=== PATIENT | female | born 1990 | race Caucasian/White ===

== ENCOUNTER 2018-12-20 19:20 | Emergency (ER) | payer OTHER ==
[~2018-12-20] VITALS: Ht 149.9 cm; Wt 49.9 kg
[2018-12-20 19:27] VITALS: BP 119/72
--- NOTE | 2018-12-20 19:27 | NUR ---
TO BED # 04 VIA WHEEL CHAIR
--- NOTE | 2018-12-20 19:36 | NUR ---
28/F PRESENTS TO ED, C/O L FOOT PAIN, S/P FOOT INVERSION WHILE RUNNING X2 HRS AGO. DENIES HEAD TRAUMA/LOC. LEFT SIDE OF DORSAL ASPECT OF L FOOT WITH BRUSING AND SWELLING, TENDER TO TOUCH, DECREASED ROM AND UNABLE TO BEAR WEIGHT DUE TO PAIN, CAP REFILL<3S. DENIES HX OTC MOTRIN 2 HRS AGO
--- NOTE | 2018-12-20 19:40 | NUR ---
XR AT BEDSIDE
[2018-12-20] MEDS ORDERED: HYDROcodone/APAP 5/325 MG 1 TAB TAB PO ONE (20:10)
[2018-12-20 21:00] VITALS: BP 136/86
--- NOTE | 2018-12-20 21:00 | NUR ---
Patient discharged with v/s stable. Written and verbal after care instructions given and explained. Patient alert, oriented and verbalized understanding of instructions. Ambulatory with crutches. All questions addressed prior to discharge. ID band removed. Patient advised to follow up with PMD. Rx of ibuprofen and norco given. Patient educated on indication of medication including possible reaction and side effects. Opportunity to ask questions provided and answered.
== END 2018-12-20 21:00 | disposition home or self-care (01) ==
LOC: MED 19:20
DX: M79.672 Pain in left foot (principal)
CPT/HCPCS: 73630; 99283; Q0092

== ENCOUNTER 2018-12-24 14:41 | Emergency (ER) | payer OTHER ==
[~2018-12-24] VITALS: Ht 147.3 cm; Wt 49.9 kg
[2018-12-24 14:48] VITALS: BP 111/75
--- NOTE | 2018-12-24 14:55 | NUR ---
PT AMBULATED TO ED BED 01
--- NOTE | 2018-12-24 15:17 | NUR ---
PT BIB SELF WITH C/O LT FOOT PAIN. NO PAIN RELIEF ON HER PRESCRIBED NORCO ON 12/20/18 FOR POSSIBLE TRANSVERSE FX AT THE BASE OF 5TH METATARSAL. PT AAO X4, GCS 15, SLEVIN TO AMBULATORY WITH STEADY GAIT. RESPIRATIONS EVEN AND UNLABORED. SKIN WAMR/PINK/DRY, +PMSC. LT FOOT ON ORTHO SHOES, ABLE TO MOVE ALL TOES, CAP REFILL LESS THAN 3 SECS, PEDALIS PULSES PRESENTS. STATED PAIN 10/10. VS WNL, DR. MARES MADE AWRE OF PT STATUS. WILL CONTINUE TO MONITOR
--- NOTE | 2018-12-24 15:19 | NUR ---
[facility] BEDSIDE EVALUATING PT
[2018-12-24 15:44] VITALS: BP 113/70
--- NOTE | 2018-12-24 15:44 | NUR ---
Patient discharged with v/s stable. Written and verbal after care instructions given and explained. Patient alert, oriented and verbalized understanding of instructions. Ambulatory with steady gait. All questions addressed prior to discharge. ID band removed. Patient advised to follow up with PMD. Rx of NAPROSYN 500 MG given. Patient educated on indication of medication including possible reaction and side effects. Opportunity to ask questions provided and answered.
== END 2018-12-24 15:44 | disposition home or self-care (01) ==
LOC: MED 14:41
DX: M79.672 Pain in left foot (principal)
CPT/HCPCS: 99282; 99283

== ENCOUNTER 2019-02-02 19:36 | Emergency (ER) | payer MEDICAID, OTHER ==
[~2019-02-02] VITALS: Ht 152.4 cm; Wt 49.9 kg
[2019-02-02 19:40] VITALS: BP 119/65
--- NOTE | 2019-02-02 19:40 | NUR ---
TO BED # 09 AMBULATORY
--- NOTE | 2019-02-02 19:45 | NUR ---
PT BIB SELF C/O ABD PAIN. PT STATES 10/10 SHARP DIFFUSED ABD PAIN, STATES FEELS BETTER AFTER RUBBING ABD; +TENDERNESS THROUGH OUT, +NAUSEA W/O VOMITING, DENIES INJURY OF TRAUMA. LBM: TODAY, WNL PER PT. PT ACTING APPROPRIATLY, SPEAKING IN CLEAR AND COMPLETE SENTENCES. BREATHING EQUAL AND UNLABORED. SAFTY PRECAUTIONS IN PLACE. PMH: DENIES
--- NOTE | 2019-02-02 19:48 | NUR ---
DR. RAMIREZ AT BEDSIDE.
[2019-02-02] MEDS ORDERED: ONDANSETRON 4 MG ODT PO ONE (19:50)
[2019-02-02 20:29] LABS: APPEARANCE,URINE CLEAR (CLEAR); BILIRUBIN,URINE NEGATIVE (NEGATIVE); BLOOD, URINE NEGATIVE (NEGATIVE); COLOR,URINE YELLOW (YELLOW); LEUKOCYTE ESTERASE ,URINE TRACE (NEGATIVE); NITRITE, URINE NEGATIVE (NEGATIVE); UGLUCOSE NEGATIVE (NEGATIVE)
[2019-02-02 21:40] VITALS: BP 120/69
--- NOTE | 2019-02-02 21:40 | NUR ---
Patient discharged with v/s stable. Patient acting appropriatly, states she is ready to go home. Patient declines pain medication at this time, states "I want to just go home and do research on it first". Written and verbal after care instructions given and explained. Patient verbalized understanding. Ambulatory with steady gait. All questions addressed prior to discharge. Advised to follow up with PMD.
== END 2019-02-02 21:40 | disposition home or self-care (01) ==
LOC: MED 19:36
DX: R10.30 Lower abdominal pain, unspecified (principal)
CPT/HCPCS: 36415; 81003; 81025; 84702; 99283; Q0162; 81002

== ENCOUNTER 2019-03-22 16:51 | Emergency (ER) | payer MEDICAID ==
[~2019-03-22] VITALS: Ht 149.9 cm; Wt 52.2 kg
[2019-03-22 17:06] VITALS: BP 118/76
--- NOTE | 2019-03-22 17:42 | NUR ---
Patient ambulated to bed 8. RN evaluating patient at bedside.
--- NOTE | 2019-03-22 17:52 | NUR ---
28/f c/o LOWER ABDOMINAL PAIN X4, NAUSEA, DIARRHEA X1 DAY. NO DYSURIA. PATIENT STATES PAIN OF 10/10 AT THIS TIME; PATIENT POSITIONED FOR COMFORT; HOB ELEVATED; BEDRAILS UP X1; BED DOWN. ER MD MADE AWARE OF PT STATUS.
[2019-03-22 18:07] VITALS: BP 119/72
--- NOTE | 2019-03-22 18:14 | NUR ---
PATIENT LEFT WITHOUT BEING SEEN BY DR. FUNES. NO FURTHER CARE PROVIDED FOR PATIENT.
== END 2019-03-22 18:14 | disposition left against medical advice (07) ==
LOC: MED 16:51
DX: R10.30 Lower abdominal pain, unspecified (principal); R19.7 Diarrhea, unspecified; R11.0 Nausea; Z53.21 Procedure and treatment not carried out due to patient leaving prior to being seen by health care provider